=== PATIENT | female | born 1975 | race Two or more races ===

== ENCOUNTER 2019-02-14 10:20 | Outpatient (CLI) | payer OTHER | END 2019-02-14 23:59 | disposition home or self-care (01) | LOC: WOU 10:20 | PROVIDERS: ATTEND Specialist | DX: T25.212A Burn of second degree of left ankle, initial encounter (principal); T25.222A Burn of second degree of left foot, initial encounter; T24.102A Burn of first degree of unspecified site of left lower limb, except ankle and foot, initial encounter; T31.0 Burns involving less than 10% of body surface; X10.0XXA Contact with hot drinks, initial encounter; Y93.H3 Activity, building and construction; Y92.89 Other specified places as the place of occurrence of the external cause | CPT/HCPCS: 16020; A6209; G0463 ==

== ENCOUNTER 2019-02-21 09:00 | Outpatient (CLI) | payer OTHER | END 2019-02-21 23:59 | disposition home or self-care (01) | LOC: WOU 09:00 | PROVIDERS: ATTEND Specialist | PROC: 2W2TX4Z Dressing of Left Foot using Bandage (ICD-10-PCS; principal; 2019-02-21) | PROC: 2W2RX4Z Dressing of Left Lower Leg using Bandage (ICD-10-PCS; principal; 2019-02-21) | DX: T25.222D Burn of second degree of left foot, subsequent encounter (principal); T25.212D Burn of second degree of left ankle, subsequent encounter; T24.102D Burn of first degree of unspecified site of left lower limb, except ankle and foot, subsequent encounter; T31.0 Burns involving less than 10% of body surface; X10.0XXD Contact with hot drinks, subsequent encounter | CPT/HCPCS: G0463 ==

== ENCOUNTER 2019-02-28 10:00 | Outpatient (CLI) | payer OTHER | END 2019-02-28 23:59 | disposition home or self-care (01) | LOC: WOU 10:00 | PROVIDERS: ATTEND Specialist | PROC: 0JBR0ZZ Excision of Left Foot Subcutaneous Tissue and Fascia, Open Approach (ICD-10-PCS; principal; 2019-02-28) | DX: T25.222A Burn of second degree of left foot, initial encounter (principal); T31.0 Burns involving less than 10% of body surface; X08.8XXA Exposure to other specified smoke, fire and flames, initial encounter; Y92.89 Other specified places as the place of occurrence of the external cause | CPT/HCPCS: 16020; A6209 ×2; 11042 ==

== ENCOUNTER 2019-03-07 09:30 | Outpatient (CLI) | payer OTHER | END 2019-03-07 23:59 | disposition home or self-care (01) | LOC: WOU 09:30 | PROVIDERS: ATTEND Specialist | DX: T25.222A Burn of second degree of left foot, initial encounter (principal); X11.8XXA Contact with other hot tap-water, initial encounter; Y92.89 Other specified places as the place of occurrence of the external cause | CPT/HCPCS: G0463 ==

== ENCOUNTER 2019-03-21 09:45 | Outpatient (CLI) | payer OTHER | END 2019-03-21 23:59 | disposition home or self-care (01) | LOC: WOU 09:45 | PROVIDERS: ATTEND Specialist | DX: T25.222D Burn of second degree of left foot, subsequent encounter (principal); T31.0 Burns involving less than 10% of body surface; X10.0XXD Contact with hot drinks, subsequent encounter | CPT/HCPCS: G0463 ==